=== PATIENT | female | born 1970 | race Two or more races ===

== ENCOUNTER 2020-06-22 05:26 | Inpatient (IN) | payer OTHER ==
[2020-06-22] VITALS (14 sets, daily range): BP systolic 118–128; BP diastolic 61–83
[~2020-06-22] VITALS: Ht 170.2 cm; Wt 88.0 kg
[2020-06-22] MEDS ORDERED: TYLENOL EXTRA500 MG ORAL (06:22)
--- NOTE | 2020-06-22 06:42 | Anethesia Preoperative Eval ---
Anesthesia Pre-op PMH/ROS General Date of Evaluation: Jun 22, 2020 Time of Evaluation: 07:01 Anesthesiologist: Jennifer ASA Score: ASA 2 Mallampati Score Class I : Soft palate, uvula, fauces, pillars visible Class II: Soft palate, uvula, fauces visible Class III: Soft palate, base of uvula visible Class IV: Only hard plate visible Mallampati Classification: Class II Surgeon: Purnima Diagnosis: Neck Pain Surgical Procedure: ACDFC4-5, C6-7, ADR C5-6 Anesthesia History: none Family History: no anesthesia problems Allergies: Coded Allergies: No Known Allergies (Unverified , 06/22/20) Medications: see eMAR Patient NPO?: Yes Past Medical History Cardiovascular: Reports: arrhythmia - PACs Other: obesity - BMI 31 PSxH Narrative: C/S X2 Anesthesia Pre-op Phys. Exam Physician Exam Last Vital Signs Date Time Temp Pulse Resp B/P (MAP) Pulse Ox O2 Delivery O2 Flow Rate FiO2 06/22/20 06:06 97.6 87 16 123/75 (91) 99 06/22/20 06:05 Room Air Constitutional: NAD Neurologic: CN 2-12 intact Cardiovascular: RRR Respiratory: CTA Gastrointestinal: S/NT/ND Airway Exam Mallampati Score: Class II MO: full ROM: limited Teeth: missing, intact Anesthesia Pre-op A/P Labs Urine Test Test 06/22/20 05:40 Urine HCG, Qualitative Negative (NEGATIVE) Risk Assessment & Plan Assessment: ASA 2 Plan: GA, SED, GlideScope Status Change Before Surgery: No Pre-Antibiotics Dru Grams Ancef IV Given Within 1 Hr of Incision: Yes Time Given: 07:26 Matthew Rodriguez MD Jun 22, 2020 06:42
[2020-06-22] MEDS ORDERED: oxyCODONE HCL/Acetaminophen 5/325mg ORAL PRN (06:45)
[2020-06-22] MEDS ORDERED: Atropine Sulfate 0.4mg/ml inj IVP PRN (06:45)
[2020-06-22] MEDS ORDERED: Midazolam 2mg/2ml Inj IVP PRN (06:45)
[2020-06-22] MEDS ORDERED: Metoclopramide 10mg/2ml Inj IVP PRN ×2 (06:45→07:15)
[2020-06-22] MEDS ORDERED: Hydromorphone 0.5mg/0.5ml inj IVP PRN (06:45)
[2020-06-22] MEDS ORDERED: Acetaminophen (Non formulary) 100 ML IV ONE (06:45)
[2020-06-22] MEDS ORDERED: LORazepam Inj 2mg/ml 1ml IV PRN (06:45)
[2020-06-22] MEDS ORDERED: fentaNYL 100 mcg/2 mL IV PRN (06:45)
[2020-06-22] MEDS ORDERED: Meperidine 25mg/1ml Inj (FOR RIGORS ONLY) IV PRN (06:45)
[2020-06-22] MEDS ORDERED: LR 1000ml 1,000 ML IVLG SCH (06:45)
[2020-06-22] MEDS ORDERED: HYDROcodone/Acetamin 7.5/325 tab ORAL PRN (06:45)
[2020-06-22] MEDS ORDERED: HYDROcodone/Acetamin 5/325 tab ORAL PRN ×2 (06:45→07:15)
[2020-06-22] MEDS ORDERED: DiphenhydrAMINE 50mg/ml Inj IVP PRN (06:45)
[2020-06-22] MEDS ORDERED: Labetalol 5mg/ml 20ml vial IV PRN (06:45)
[2020-06-22] MEDS ORDERED: Ketorolac 30mg Inj IV PRN ×2 (06:45)
[2020-06-22] MEDS ORDERED: Sodium Chloride 10ml vial INJ ONE (06:46)
[2020-06-22] MEDS ORDERED: Lidocaine 1% MPF 10mg/ml 5ml ONE (06:46)
[2020-06-22] MEDS ORDERED: Vancomycin 1gm vial IVPB ONE (06:46)
[2020-06-22] MEDS ORDERED: Thrombin 5000 units TOPIC ONE (06:47)
[2020-06-22] MEDS ORDERED: Bacitracin 50000 Units Vial ONE (06:47)
[2020-06-22] MEDS ORDERED: Gelfoam Size TOPIC ONE (06:47)
[2020-06-22] MEDS ORDERED: Lidocaine 1% Plain 30 ml INJ ONE ×3 (06:48→08:48)
[2020-06-22] MEDS ORDERED: Ropivacaine 5mg/ml Vial 30ml INJ ONE (06:48)
[2020-06-22] MEDS ORDERED: Sterile Water Irrig 1000ml IRRIG ONE (07:00)
[2020-06-22] MEDS ORDERED: Rocuronium Bromide 50mg/5ml Inj IV ONE (07:00)
[2020-06-22] MEDS ORDERED: ceFAZolin sod 2 GM in NS 55 ML IVPB ONE (07:00)
[2020-06-22] MEDS ORDERED: LR 1000ml ONE (07:00)
[2020-06-22] MEDS ORDERED: NS Irrig 1000ml ONE (07:00)
[2020-06-22] MEDS ORDERED: propofoL 1,000mg/100ml IV ONE (07:00)
[2020-06-22] MEDS ORDERED: Morphine Sulfate 2mg/ml Inj(IV/IM USE ONLY) IV PRN (07:15)
[2020-06-22] MEDS ORDERED: Naloxone 0.4mg/ml Inj IVP PRN (07:15)
[2020-06-22] MEDS ORDERED: Milk of Magnesia 30ml Ud ORAL PRN (07:15)
[2020-06-22] MEDS ORDERED: Morphine Sulfate 4mg/ml Inj (IV USE ONLY) IV PRN ×2 (07:15)
[2020-06-22] MEDS ORDERED: HYDROmorphone 1mg/ml Carpuject IVP PRN (07:15)
--- NOTE | 2020-06-22 07:17 | Immediate Post-Op Evaluation ---
Immediate Post-Op Evalulation Immediate Post-Op Evalulation Procedure: ACDFC4-5, C6-7, ADR C5-6 Date of Evaluation: Jun 22, 2020 Time of Evaluation: 10:54 IV Fluids: 800 LR Blood Products: 0 Estimated Blood Loss: 75 Urinary Output: 700 Blood Pressure Systolic: 126 Blood Pressure Diastolic: 70 Pulse Rate: 100 Respiratory Rate: 16 O2 Sat by Pulse Oximetry: 100 Temperature (Fahrenheit): 97.5 Pain Score (1-10): 2 Nausea: No Vomiting: No Complications 0 Patient Status: awake, reacts, patent, extubated, none Hydration Status: adequate Dru Grams Ancef IV Given Within 1 Hr of Incision: Yes Time Given: 07:26 Matthew Rodriguez MD Jun 22, 2020 07:17
--- NOTE | 2020-06-22 07:18 | 48 Hour Post Anesthesia Eval ---
Post Anesthesia Evaluation Procedure: ACDFC4-5, C6-7, ADR C5-6 Date of Evaluation: Jun 22, 2020 Time of Evaluation: 13:12 Blood Pressure Systolic: 130 0: 72 Pulse Rate: 89 Respiratory Rate: 18 Temperature (Fahrenheit): 98 O2 Sat by Pulse Oximetry: 100 Airway: patent Nausea: No Vomiting: No Pain Intensity: 2 Hydration Status: adequate Cardiopulmonary Status: Stable Mental Status/LOC: patient returned to baseline Follow-up Care/Observations: 0 Post-Anesthesia Complications: 0 Follow-up care needed: N/A Matthew Rodriguez MD Jun 22, 2020 07:18
--- NOTE | 2020-06-22 07:23 | Pre-Procedure Note/Attestation ---
Pre-Procedure Note/Attestation Complete Prior to Procedure Planned Procedure: not applicable Procedure Narrative: Cervical 56 artificial disc replacement, cervical 45 and 67 anterior cervical discectomy and fusion Indications for Procedure Pre-Operative Diagnosis: C45,56,67 herniation Attestation I attest that I discussed the nature of the procedure; its benefits; risks and complications; and alternatives (and the risks and benefits of such alternatives), prior to the procedure, with the patient (or the patient's legal artist representative). I attest that, if there was a reasonable possibility of needing a blood transfusion, the patient (or the patient's legal artist representative) was given the [facility] standardized written summary, pursuant to the Ravi Marilia Blood Safety Act ([place] Health and Safety Code # 1645, as amended). I attest that I re-evaluated the patient just prior to the surgery and that there has been no change in the patient's H&P, except as documented below: Merlin Felton MD Jun 22, 2020 07:23
--- NOTE | 2020-06-22 07:24 | Brief Operative Note ---
Immediate Post Operative Note Operative Note Chief Complaint: neck pain and radiculopathy Pre-op Diagnosis: C45,56,67 herniation Procedure: Cervical 56 artificial disc replacement, cervical 45 and 67 anterior cervical discectomy and fusion Post-op Diagnosis: same as pre-op Findings: consistent w/pre-op dx studies Surgeon: Purnima Process Control Manager: Migue Anesthesiologist: Jennifer Anesthesia: general Specimen: none Complications: none Condition: stable Fluids: IVF Estimated Blood Loss: minimal Drains: none Implant(s) used?: Yes - C56 prodisc c sz 5, C45 and C67 nuvasive interlock sz 6 screws 13mmx6 Merlin Felton MD Jun 22, 2020 07:24
--- NOTE | 2020-06-22 15:50 | Diagnostic Imaging Report ---
INDICATION: Pain, intraoperative TECHNIQUE: Intraoperative imaging Fluoroscopy time: 39 seconds Total dose: 0.19232 mGym2 Total number of images: 21 COMPARISON: None FINDINGS: Intraoperative images demonstrate surgical tools overlying the C4 vertebral body and the C6-7 disc. Subsequent images document surgical tools at the anterior aspect of the C4-5 and C5-6 discs. Subsequent imaging demonstrates placement of a disc prosthesis at C5-6 and anterior fusion hardware at C4-5 and C6-7 IMPRESSION: Intraoperative imaging, as described
--- NOTE | 2020-06-22 15:51 | Diagnostic Imaging Report ---
Indication: Postoperative Technique: 2 views of the cervical spine Comparison: none Findings: There is well aligned cervical fusion hardware bridging C4-5 and C6-7. There is a disc prosthesis which appears well aligned at C5-6. Gas from the surgical exposure seen within the soft tissues Impression: Postoperative cervical spine, no unusual features
[2020-06-22] MEDS: ceFAZolin sod 1 GM in D5W 55 ML IV SCH (16:19)
[2020-06-22] MEDS: HYDROcodone/Acetamin 7.5/325 tab ORAL PRN (17:19)
[2020-06-22] MEDS: Docusate 100mg cap ORAL SCH (17:19)
--- NOTE | 2020-06-22 19:44 | Operative Note - Dictated ---
DATE OF OPERATION: 06/22/2020 SURGEON: Merlin Felton MD, Orthopaedic Spine Surgeon. MANAGED SERVICES SALES CONSULTANT: Stephan Camarena MD PREOPERATIVE DIAGNOSES: 1. Intractable neck pain. 2. Radiculopathy. 3. Herniation, C4-C5, C5-C6, C6-C7. 4. Neural foraminal stenosis, C4-C5, C5-C6, C6-C7. 5. Stenosis. POSTOPERATIVE DIAGNOSES: 1. Intractable neck pain. 2. Radiculopathy. 3. Herniation, C4-C5, C5-C6, C6-C7. 4. Neural foraminal stenosis, C4-C5, C5-C6, C6-C7. 5. Stenosis. PROCEDURE PERFORMED: 1. Anterior cervical discectomy and artificial disc replacement of C5-C6 using a Synthes ProDisc C size 5. 2. Anterior cervical discectomy and fusion of C4-C5 using NuVasive Interlock C size 5 PEEK cage and three screws of 13 mm length, and 1 mL of Osteocel allograft bone and local autograft. 3. Anterior cervical discectomy and fusion of C6-C7 using NuVasive Interlock C size 6 PEEK cage and three screws of 13 mm length, and 1 mL of Osteocel allograft bone and local autograft. 4. Use of intraoperative microscope. 5. Motor-evoked potential monitoring. 6. Somatosensory-evoked potential monitoring. 7. Supervision and interpretation of fluoroscopy. COMPLICATIONS: None. ANESTHESIA: General. ESTIMATED BLOOD LOSS: Less than 100 mL. INDICATIONS FOR SURGERY: This patient is a 50-year-old female who has a history of diagnoses as listed above. As of result of this, the patient sustained intractable neck pain; radiculopathy; herniation at C4-C5, C5-C6, C6-C7; neural foraminal stenosis at C4-C5, C5-C6, C6-C7; stenosis. Conservative management on this person was tried with an offset, presented with 95% neck pain and 5% shoulder pain, which was 100% right-sided. Prior to surgery, she tried a course of conservative management, which included chiropractic therapy and [facility] She also tried heating pads, ice packs, TENS unit, electrotherapy, and massage and stretching exercises. She was consulting with Dr. Santana and had undergone injections in her lumbar spine as well as injections with Dr. Villagomez on 05/18/2020, which provided 75% relief into the right C4-C5 with nerve root block. She presents today for definitive management in the form of artificial disc replacement of C5-C6 and anterior cervical diskectomy and fusion at C4-C5 and C6-C7. We had a long discussion with [facility] regarding the risks and benefits of surgery. Our discussion included but was not limited to nonoperative management, chiropractic management, another epidural steroid injection as well as definitive management in the form of surgery. We recommended an artificial disc replacement of cervical C5-C6 and anterior cervical discectomy and fusion of cervical C4-C5 and C6-C7, as final definitive management. We reviewed the risks and benefits of surgery with the patient. Our discussion included a comprehensive review of the clinical issues and the nature of the clinical decision. We reviewed the alternatives, including doing nothing. The patient elected to proceed accordingly with an artificial disc replacement of cervical C5-C6 and anterior cervical discectomy and fusion of cervical C4-C5 and C6-C7. We had a long discussion regarding the risks, alternatives, and benefits of surgery. Our description of the risks included a discussion in person as well as a signed consent, which detailed all pertinent risks from the procedure itself. Briefly, our discussion included but was not limited to infection, bleeding, pseudarthrosis, spinal cord injury, neurovascular injury, dural tear, CSF leak, neuropathy, paralysis, permanent weakness/drop foot/drop arm, paresthesias, blindness, palsy, and weakness. The patient understood there may be a need for a revision surgery or additional procedures. Approach-related complications including dysphonia, dysphagia, blindness, permanent vocal cord and neural injury, hematoma, swallowing and breathing difficulty. Medical complications were reviewed including liver, kidney, shock, cardiopulmonary failure, anesthesia complications including , swelling, damage to the musculature, larynx/voice injury or loss, esophagus/throat, trachea, blood vessels and muscles/muscular sprain and lungs/pneumothorax during this surgical procedure; injury to deeper structures may be temporary or permanent. After this review of risks, the patient understood these and elected to proceed. A written and verbal consent was given. We discussed the pros and cons of all the alternatives. We discussed the uncertainties associated with the decision. Afterwards, I assessed the patient's understanding and explored their preferences. All questions were answered and no guarantees were given. Medical clearance was obtained prior to surgery. INTRAOPERATIVE FINDINGS: At C6-C7, after removal of the majority of the disc, I noted the disc to be soft and spongy, not dehydrated or calcified. Near the posterior margin of the disc, I noted a large tear in the posterior longitudinal ligament on the right side. This was probed with a Microsect curette, which led to discovery of a large herniated fragment encroaching the neural foramina on the right side and causing severe neural foraminal stenosis as well as some impingement posteriorly on the thecal sac and the spinal cord. This was more than even appreciated on the MRI. This was completely resected with Kerrison 1 and Kerrison 2 rongeur. The tear of the posterior longitudinal ligament, I should note, appeared fresh edges. This was not something that appeared to be an old tear or a simple disc bulge, which can be more broad-based. Here, this was an eccentric tear on the right-hand side. At C5-C6, I noted the disc itself to be soft and spongy, not dehydrated or calcified. Upon removal of the disc, I noted 2 tears, one on the right and one on the left neural foramina in the posterior longitudinal ligament. The tear was approximately 10 degrees cephalad to caudad in line with the fibers on the right and left. These 2 tears were probed and on the left side, it gave rise to a large herniated nuclear fragment, which was causing encroachment on the neural foramina. On the right side, it also gave rise to a nuclear fragment smaller than what was discovered on the left; however, this was causing some neural foraminal encroachment on the right as well. The disc was resected with Kerrison 1 and Kerrison 2 rongeur without any difficulty. At C4-C5, after removal of the majority of the disc, I noted a tear in the posterior longitudinal ligament on the right side of the posterior longitudinal ligament. The tear had fresh edges. The disc itself was soft and mobile, not calcified or crumbled, leading me to believe this was more traumatic in nature. Upon probing the posterior longitudinal tear, I noted the edges to be relatively fresh and approximately 10 degrees cephalad to caudad. Probing with a Microsect curette, led to discovery of nuclear pulposus tissue, which was exiting through the tear in the PLL and encroaching on the neural foramina primarily on the right side. This was resected with Kertoñito 1 and Rafael 2 heike. DESCRIPTION OF PROCEDURE: Under the benefit of general endotracheal anesthesia and with the assistance of the entire operative team, the patient was moved from the gurney onto the operative table in the supine position. The head was secured and carefully positioned appropriately. Bilateral arms were secured with Gel Pads and foam and all bony prominences were padded. For the bilateral lower extremities, SCD and NEGRITO hose were placed for DVT prophylaxis. A surgical timeout was called, which corroborated our planned procedure of an artificial disc replacement of cervical C5-C6 and anterior cervical discectomy and fusion of cervical C4-C5 and C6-C7. Preoperative antibiotics were administered within 30 minutes of the incision for antibiotic prophylaxis. Using lateral fluoroscopic radiography, the operative levels were delineated. Next, the wound was prepped and draped with chlorhexidine and sterile drapes. An incision was based on lateral fluoroscopy and we centered our incision at the C4-C5, C5-C6, and C6-C7 interspace and next, using a standard [place]-Mohan anterior-based approach, the incision was taken down through the skin and subcutaneous tissues until the vertebral bodies and their corresponding disc spaces were visualized. A needle was placed into the interspace to confirm placement of the operative interspace and we performed the remainder of procedure under microscopic visualization. Next, using bipolar and Bovie cautery to ensure meticulous hemostasis, the longus colli was mobilized bilaterally and retractors were placed deep to the longus colli bilaterally to address retraction. Next, we turned our attention to the radical anterior discectomy. This was initially performed at C5-C6 first by using a 15 blade scalpel followed by narrow pituitaries and a Microsect 5-B curette was used to denude the endplate of all cartilaginous tissue. Next, using a [employer] AM8 drill bit, the vertebral endplates were denuded of all residual cartilage in a ibxa-lg-usyd and sppyr-fj-edukl fashion, and ultimately the posterior uncinate joints bilaterally and posterior osteophytic lips and margins were carefully denuded until clear visualization of the posterior longitudinal ligament was possible. An endplate preparation was performed in the exact same fashion using an intervertebral vault person, sequential distraction was obtained throughout the disc space. We saw a tear/rent in the PLL and this was carefully mobilized and dissected using a Microsect 1-B curette until we visualized a discrete disc herniation with compression of the spinal cord as well as neural foramina, which was right more than left sided. This neural foraminal compression was carefully resected using a Kerrison-1 and Kerrison-2 rongeurs until complete decompression of the spinal cord was visualized and complete decompression of the neural foramina and nerve root therein as well as the axilla and lateral margin of the nerve root was visualized and subsequently completely decompressed. The family was notified at one-hour intervals throughout the procedure to provide for consistent updates. We next turned our attention towards trialing our implant within the disc space. We initially tried size 5 and this ProDisc Cervical spacer fit well in regard to depth and width. This implant was opened and prepared. Next, under direct visualization, I confirmed excellent fit in respect to the anterior and posterior vertebral bodies, the uncinate joints, and in regard to toggle. Once satisfied with this placement on serial AP and lateral fluoroscopy, I turned my attention towards cutting our chris. These were cut in the bones using a reciprocating drill and afterwards all free fragments of bone were irrigated. Next, FloSeal was placed into the interspace, then removed in its entirety, and the implant was inserted using fluoroscopic guidance. Next, the Synthes ProDisc C size 5 ADR was then carefully advanced and secured into the intervertebral space under direct visualization and with supervision of AP and lateral fluoroscopic views. I next turned my attention towards the radical anterior discectomy. This was then performed at C4-C5 first by using a 15 blade scalpel followed by narrow pituitaries and a Microsect 5-B curette was used to denude the endplate of all cartilaginous tissue. Next, using a [employer] AM8 drill bit, the vertebral endplates were denuded of all cartilaginous tissue in a ttsf-qm-sdpl and uixxn-ig-okeac fashion, and ultimately the posterior uncinate joints bilaterally and posterior osteophytic lips and margins were carefully denuded until wide and thorough visualization of the posterior longitudinal ligament was possible. At this level, the endplate preparation was performed in the exact same fashion using an intervertebral vault person, sequential distraction was obtained throughout the disc space. We saw a tear/rent in the PLL and this was carefully mobilized and dissected using a Microsect 1-B curette until we visualized an obvious disc herniation with compression of the spinal cord as well as neural foramina, which was right more than left sided. This neural foraminal compression was carefully resected using Kerrison-1 and Kerrison-2 rongeurs until complete decompression of the spinal cord was visualized and complete decompression of the neural foramina and nerve root therein as well as the axilla and lateral margin of the nerve root was visualized and subsequently completely decompressed. We next turned our attention towards trialing our implant within the disc space. We initially tried size 5 trial from the NuVasive Interlock system at C4-C5 level, which appeared to be appropriate under AP and lateral fluoroscopy as well as in terms of its height, depth, width, and lack of toggle. The PEEK (polyetheretherketone) interbody cage was then packed with allograft bone from Osteocel and local autograft bone matrix. Next, this was then carefully advanced and secured into the intervertebral spaces under direct visualization and with supervision of AP and lateral fluoroscopic views. We next turned our attention towards plating. Plating was performed at C4-C5 level with the NuVasive Interlock-C plating system. A total of three screws of size 13 mm in length were inserted and confirmed under AP and lateral fluoroscopy and confirmed to be in excellent position. I next turned my attention towards the radical anterior discectomy. This was then performed at C6-C7 first by using a 15 blade scalpel followed by narrow pituitaries and a Microsect 5-B curette was used to denude the endplate of all cartilaginous tissue. Next, using a [employer] AM8 drill bit, the vertebral endplates were denuded of all cartilaginous tissue in a lkqy-iq-wxqi and kgweb-ku-ijiup fashion, and ultimately the posterior uncinate joints bilaterally and posterior osteophytic lips and margins were carefully denuded until wide and thorough visualization of the posterior longitudinal ligament was possible. At this level, the endplate preparation was performed in the exact same fashion using an intervertebral vault person, sequential distraction was obtained throughout the disc space. We saw a tear/rent in the PLL and this was carefully mobilized and dissected using a Microsect 1-B curette until we visualized an obvious disc herniation with compression of the spinal cord as well as neural foramina, which was right more than left sided. This neural foraminal compression was carefully resected using Kerrison-1 and Kerrison-2 rongeurs until complete decompression of the spinal cord was visualized and complete decompression of the neural foramina and nerve root therein as well as the axilla and lateral margin of the nerve root was visualized and subsequently completely decompressed. We next turned our attention towards trialing our implant within the disc space. We initially tried size 5 and afterwards size 6 trial from the NuVasive Interlock system at C6-C7 level, which appeared to be appropriate under AP and lateral fluoroscopy as well as in terms of its height, depth, width, and lack of toggle. The PEEK (polyetheretherketone) interbody cage was then packed with 1 mL of allograft bone from Osteocel and local autograft bone matrix. Next, this was then carefully advanced and secured into the intervertebral spaces under direct visualization and with supervision of AP and lateral fluoroscopic views. We next turned our attention towards plating. Plating was performed at C6-C7 level with the NuVasive Interlock-C plating system. A total of three screws of size 13 mm in length were inserted and confirmed under AP and lateral fluoroscopy and confirmed to be in excellent position. After a finger sweep, we confirmed removal of all sponges. The retractor was removed and we next turned our attention to meticulous hemostasis with FloSeal and bipolar cautery. After the sponge and needle count was again found to be correct with our second count, we next turned our attention to closure. The wound was again copiously irrigated with antibiotic-impregnated saline. Closure consisted of 4-0 clear nylon for the platysma, and 5-0 clear nylon for the superficial skin. Final skin closure and dressings consisted of Dermabond. Prior to final closure, a final radiograph was obtained, which demonstrated the hardware was intact with excellent position throughout. The patient tolerated the procedure well. The patient was carefully extubated after the conclusion of surgery. We discussed the findings of the surgery with the family upon completion of the case. At this point, the patient was transferred to the spine floor for further observation. Merlin Felton M.D. DR: DIONISIO JOB#: [id number] CC: CLEMENT
[2020-06-23] VITALS (36 sets, daily range): BP systolic 64–145; BP diastolic 28–94
[2020-06-23] MEDS: ceFAZolin sod 1 GM in D5W 55 ML IV SCH ×2 (00:23→08:00)
[2020-06-23] MEDS ORDERED: Omnipaque-300 100ml vial INJ ONE (06:56)
[2020-06-23] MEDS ORDERED: dilTIAZem HCl 50mg/10ml Inj IVP ONE (07:00)
[2020-06-23] MEDS ORDERED: dilTIAZem HCl 25mg/5ml Inj ONE (07:13)
[2020-06-23 07:24] LABS: BASOPHILS % (AUTO) 0.4 % (0.0-2.0); HEMATOCRIT 32.9 % (37.0-47.0); HEMOGLOBIN 10.8 G/DL (12.0-16.0); LYMPHOCYTES % (AUTO) 14.9 % (20.0-45.0); MEAN CORPUSCULAR VOLUME 88 FL (80-99); MONOCYTES % (AUTO) 4.5 % (1.0-10.0); NEUTROPHILS % (AUTO) 80.2 % (45.0-75.0); PLATELET COUNT 213 K/UL (150-450); RED BLOOD COUNT 3.73 M/UL (4.20-5.40); RED CELL DISTRIBUTION WIDTH 16.2 % (11.6-14.8); WHITE BLOOD COUNT 17.6 K/UL (4.8-10.8)
[2020-06-23 07:47] LABS: CALCIUM 8.8 MG/DL (8.5-10.1); POTASSIUM 4.3 MMOL/L (3.5-5.1)
[2020-06-23 07:57] LABS: ALBUMIN 3.5 G/DL (3.4-5.0); ALBUMIN/GLOBULIN RATIO 1.1 (1.0-2.7); BILIRUBIN,TOTAL 0.8 MG/DL (0.2-1.0); PHOSPHORUS 3.4 MG/DL (2.5-4.9)
[2020-06-23] MEDS ORDERED: dilTIAZem HCl 25mg/5ml Inj IVP SCH ×2 (08:15→17:15)
[2020-06-23] MEDS ORDERED: Omnipaque 350 100ml vial INJ SCH (09:00)
--- NOTE | 2020-06-23 10:02 | Diagnostic Imaging Report ---
EXAM: US Duplex Bilateral Lower Extremities Veins CLINICAL HISTORY: PE TECHNIQUE: Real-time duplex ultrasound scan of the bilateral lower extremity veins integrating B-mode two-dimensional vascular structure, Doppler spectral analysis, color flow Doppler imaging and compression. COMPARISON: No relevant prior studies available. FINDINGS: Right deep veins: Unremarkable. No DVT in the right common femoral, femoral, proximal deep femoral or popliteal veins. The veins demonstrate normal color flow, are normally compressible, with normal phasic flow and/or augmentation response. Right superficial veins: Unremarkable. No thrombus in the visualized right great saphenous vein. Left deep veins: Unremarkable. No DVT in the left common femoral, femoral, proximal deep femoral or popliteal veins. The veins demonstrate normal color flow, are normally compressible, with normal phasic flow and/or augmentation response. Left superficial veins: Unremarkable. No thrombus in the visualized left great saphenous vein. Soft tissues: No acute findings. No popliteal cyst. IMPRESSION: No evidence of DVT in the lower extremities.
--- NOTE | 2020-06-23 10:24 | Diagnostic Imaging Report ---
EXAM: CT Angiography Chest With Intravenous Contrast CLINICAL HISTORY: PE. Pt had Cervical fusion a few days ago. TECHNIQUE: Axial computed tomographic angiography images of the chest with intravenous contrast. CTDI is 5.70 mGy and DLP is 168.30 mGy-cm. One or more of the following dose reduction techniques were used: automated exposure control, adjustment of the mA and/or kV according to patient size, use of iterative reconstruction technique. MIP reconstructed images were created and reviewed. COMPARISON: No relevant prior studies available. FINDINGS: Soft tissue swelling and emphysema noted in the inferior neck, likely related to recent cervical spine surgery. Normal caliber thoracic aorta with pulsation artifact. Mild cardiomegaly. No pericardial effusion. No pulmonary edema or failure. Bilateral lower lobe posterior atelectasis and dependent vascular congestion. No focal consolidative process or pleural effusions. No central PE. More peripheral branches are not adequately evaluated due to respiratory motion. Small hiatal hernia. Mottled sclerotic changes in the T9 vertebral body. IMPRESSION: Normal caliber thoracic aorta with pulsation artifact. Mild cardiomegaly. No pericardial effusion. No pulmonary edema or failure. Bilateral lower lobe posterior atelectasis and dependent vascular congestion. No central PE. More peripheral branches are not adequately evaluated due to respiratory motion. Indeterminate sclerotic changes in the T9 vertebral body. Recommend correlation with bone scan/MRI. Soft tissue swelling and emphysema noted in the inferior neck, likely related to recent cervical spine surgery
[2020-06-23] MEDS: Docusate 100mg cap ORAL SCH ×2 (10:34→18:04)
[2020-06-23] MEDS ORDERED: Metoprolol Tartrate 5mg/5ml Inj IVP SCH (11:30)
[2020-06-23] MEDS ORDERED: Metoprolol Tartrate 10 MG in D5W 55 ML IVPB SCH (16:00)
[2020-06-23] MEDS: dilTIAZem Premix 125mg/125ml 125 ML IVPB SCH (17:25)
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
[2020-06-23] MEDS ORDERED: DiphenhydrAMINE 50mg/ml Inj IVP PRN (20:00)
[2020-06-23] MEDS: HYDROcodone/Acetamin 7.5/325 tab ORAL PRN (22:11)
[2020-06-24] VITALS (64 sets, daily range): BP systolic 88–121; BP diastolic 34–80
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
[2020-06-24] MEDS: dilTIAZem Premix 125mg/125ml 125 ML IVPB SCH (06:30)
[2020-06-24 07:16] LABS: HEMATOCRIT 30.4 % (37.0-47.0); HEMOGLOBIN 10.1 G/DL (12.0-16.0); LYMPHOCYTES % (AUTO) 32.1 % (20.0-45.0); MEAN CORPUSCULAR VOLUME 88 FL (80-99); MONOCYTES % (AUTO) 4.8 % (1.0-10.0); PLATELET COUNT 206 K/UL (150-450); RED BLOOD COUNT 3.46 M/UL (4.20-5.40); RED CELL DISTRIBUTION WIDTH 16.4 % (11.6-14.8); WHITE BLOOD COUNT 10.6 K/UL (4.8-10.8)
[2020-06-24] MEDS: Docusate 100mg cap ORAL SCH ×2 (08:39→17:41)
[2020-06-24] MEDS: dilTIAZem HCl 30mg tab ORAL SCH ×2 (13:59→17:41)
[2020-06-24] MEDS ORDERED: dilTIAZem Premix 125mg/125ml 125 ML IVPB SCH (14:00)
[2020-06-24] MEDS: HYDROcodone/Acetamin 7.5/325 tab ORAL PRN (14:13)
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
--- NOTE | 2020-06-24 21:55 | Cardiology Progress Note ---
Subjective DATE OF SERVICE: Jun 24, 2020 On IV diltiazem - converted back to sinus with PAC's Able to tolerate oral intake now. Had CP this morning - resolved with dilaudid; property assessment monitor reveals sinus with PAC's. 2D echo: (06/24) with normal LVEF 65%. Mild pulm hypertension(41mmHg). Mild MR , mild -mod TR. Objective Last 24 Hour Vital Signs Date Time Temp Pulse Resp B/P (MAP) Pulse Ox O2 Delivery O2 Flow Rate FiO2 06/24/20 20:00 98.1 85 20 119/71 (87) 98 06/24/20 19:15 89 14 109/56 (73) 99 06/24/20 19:00 86 12 105/51 (69) 98 06/24/20 18:45 88 12 103/57 (72) 98 06/24/20 18:30 83 11 104/54 (71) 97 06/24/20 18:15 82 10 100/60 (73) 97 06/24/20 18:00 85 13 104/49 (67) 98 06/24/20 17:41 90 112/53 06/24/20 17:30 88 11 112/53 (72) 98 06/24/20 17:00 97 25 119/62 (81) 97 06/24/20 16:30 85 10 108/64 (79) 97 06/24/20 16:00 92 06/24/20 16:00 Room Air 06/24/20 16:00 98.9 93 18 113/80 (91) 98 06/24/20 15:30 92 21 114/66 (82) 98 06/24/20 15:00 94 20 111/70 (84) 99 06/24/20 14:30 90 13 109/64 (79) 100 06/24/20 14:00 95 14 108/65 (79) 99 06/24/20 13:59 101 112/59 06/24/20 13:30 91 13 103/60 (74) 99 06/24/20 13:00 95 19 121/66 (84) 100 06/24/20 12:30 95 19 103/73 (83) 100 06/24/20 12:00 Room Air 06/24/20 12:00 84 06/24/20 12:00 97.8 84 10 94/58 (70) 100 06/24/20 11:30 86 13 91/51 (64) 98 06/24/20 11:00 84 10 97/60 (72) 98 06/24/20 10:45 84 12 101/57 (72) 98 06/24/20 10:30 90 16 106/60 (75) 99 06/24/20 10:15 91 15 102/71 (81) 98 06/24/20 10:00 89 13 104/66 (79) 98 06/24/20 09:45 82 12 94/57 (69) 97 06/24/20 09:30 82 12 99/68 (78) 97 06/24/20 09:15 87 10 100/70 (80) 100 06/24/20 09:00 94 21 95/77 (83) 99 06/24/20 08:45 93 16 111/62 (78) 99 06/24/20 08:41 91 14 100/59 (73) 100 06/24/20 08:30 84 10 101/57 (72) 98 06/24/20 08:15 85 12 99/49 (66) 98 06/24/20 08:00 91 06/24/20 08:00 Room Air 06/24/20 08:00 98.1 84 11 106/48 (67) 98 06/24/20 07:45 92 17 107/67 (80) 98 06/24/20 07:30 85 19 100/64 (76) 98 06/24/20 07:00 76 12 91/52 (65) 97 06/24/20 06:30 100 10 98/65 (76) 96 06/24/20 06:00 100 10 92/65 (74) 94 06/24/20 05:45 102 16 96/77 (83) 95 06/24/20 05:30 103 12 101/70 (80) 95 06/24/20 05:15 106 19 105/69 (81) 98 06/24/20 05:00 100 15 96/66 (76) 98 06/24/20 04:45 98 13 96/66 (76) 98 06/24/20 04:30 101 16 105/61 (76) 97 06/24/20 04:15 101 14 94/54 (67) 97 06/24/20 04:00 Room Air 06/24/20 04:00 95 06/24/20 04:00 98.3 97 10 97/63 (74) 97 06/24/20 03:45 101 12 98/57 (71) 98 06/24/20 03:30 93 12 94/64 (74) 98 06/24/20 03:15 91 13 95/57 (70) 98 06/24/20 03:00 92 12 94/61 (72) 97 06/24/20 02:45 93 10 90/64 (73) 97 06/24/20 02:30 91 15 93/63 (73) 97 06/24/20 02:15 89 9 91/60 (70) 97 06/24/20 02:03 95 17 88/58 (68) 97 06/24/20 02:00 96 9 88/34 (52) 96 06/24/20 01:45 99 10 90/59 (69) 98 06/24/20 01:30 91 9 92/56 (68) 96 06/24/20 01:15 97 10 92/62 (72) 97 06/24/20 01:00 96 10 94/62 (73) 97 06/24/20 00:45 109 14 93/53 (66) 97 06/24/20 00:44 101 06/24/20 00:30 138 10 93/63 (73) 96 06/24/20 00:15 158 19 95/60 (72) 98 06/24/20 00:00 Room Air 06/24/20 00:00 98.3 163 24 101/60 (74) 97 06/23/20 23:45 165 13 95/56 (69) 98 06/23/20 23:30 167 12 95/56 (69) 98 06/23/20 23:15 164 14 94/56 (69) 98 06/23/20 23:00 163 18 104/69 (81) 98 06/23/20 22:45 163 18 100/75 (83) 98 06/23/20 22:30 161 12 102/56 (71) 98 06/23/20 22:15 163 13 98/62 (74) 97 06/23/20 22:00 162 12 94/62 (73) 98 06/23/20 22:00 162 12 94/62 (73) 98 06/23/20 21:45 161 14 96/54 (68) 97 HEENT: other - surgical dressing over anterior neck RHYTHM: NSR, PACs, other - PAFlutter LUNGS: lungs clear bilaterally, diminished breath sounds CARDIAC: normal rate, regular rhythm, normal S1 and S2 ABDOMEN: normal bowel sounds, non tender EXTREMITIES: no calf tenderness, No edema Laboratory Tests Test 06/24/20 06:00 White Blood Count 10.6 K/UL (4.8-10.8) Red Blood Count 3.46 M/UL (4.20-5.40) L Hemoglobin 10.1 G/DL (12.0-16.0) L Hematocrit 30.4 % (37.0-47.0) L Mean Corpuscular Volume 88 FL (80-99) Mean Corpuscular Hemoglobin 29.1 PG (27.0-31.0) Mean Corpuscular Hemoglobin Concent 33.1 G/DL (32.0-36.0) Red Cell Distribution Width 16.4 % (11.6-14.8) H Platelet Count 206 K/UL (150-450) Mean Platelet Volume 9.7 FL (6.5-10.1) Neutrophils (%) (Auto) 61.0 % (45.0-75.0) Lymphocytes (%) (Auto) 32.1 % (20.0-45.0) Monocytes (%) (Auto) 4.8 % (1.0-10.0) Eosinophils (%) (Auto) 1.0 % (0.0-3.0) Basophils (%) (Auto) 1.0 % (0.0-2.0) Magnesium Level 1.7 MG/DL (1.8-2.4) L Troponin I 0.025 ng/mL (0.000-0.056) Pro-B-Type Natriuretic Peptide 4197 pg/mL (0-125) H Thyroid Stimulating Hormone (TSH) 3.524 uiU/mL (0.358-3.740) Microbiology Date/Time Source Procedure Growth Status 06/22/20 06:10 Nasal Nares MRSA Culture - Final NO METHICILLIN RESISTANT STAPH AUREUS... Complete Assessment/Plan Assessment/Plan PAFlutter Post op cervical spine surgery Mild pulmonary hypertension - ? etiology Mild mitral and tricuspid regurgitation Continue oral diltiazem No anticoag therapy at present Pulmonary follow up Consideration for ablation in future Claudio Barone MD Jun 24, 2020:55
[2020-06-25] VITALS: BP 102/60
[2020-06-25 04:00] VITALS: BP 104/56
[2020-06-25 05:32] LABS: BASOPHILS % (AUTO) 1.1 % (0.0-2.0); EOSINOPHILS % (AUTO) 1.9 % (0.0-3.0); HEMATOCRIT 30.1 % (37.0-47.0); HEMOGLOBIN 9.7 G/DL (12.0-16.0); LYMPHOCYTES % (AUTO) 27.9 % (20.0-45.0); MEAN CORPUSCULAR VOLUME 89 FL (80-99); MONOCYTES % (AUTO) 4.6 % (1.0-10.0); NEUTROPHILS % (AUTO) 64.5 % (45.0-75.0); PLATELET COUNT 198 K/UL (150-450); RED BLOOD COUNT 3.39 M/UL (4.20-5.40); RED CELL DISTRIBUTION WIDTH 16.9 % (11.6-14.8)
[2020-06-25] MEDS: dilTIAZem HCl 30mg tab ORAL SCH ×3 (06:00→12:28)
[2020-06-25 06:01] LABS: ANION GAP 5 mmol/L (5-15); BLOOD UREA NITROGEN 5 mg/dL (7-18); CALCIUM 8.6 MG/DL (8.5-10.1); CARBON DIOXIDE 29 MMOL/L (21-32); CHLORIDE 105 MMOL/L (98-107); CREATININE 0.8 MG/DL (0.55-1.30); SODIUM 139 MMOL/L (136-145)
[2020-06-25 08:00] VITALS: BP 134/85
[2020-06-25] MEDS: Docusate 100mg cap ORAL SCH (08:11)
[2020-06-25] MEDS: HYDROcodone/Acetamin 7.5/325 tab ORAL PRN (08:12)
[2020-06-25] MEDS ORDERED: Bisacodyl EC 5mg tab ORAL SCH (08:30)
--- NOTE | 2020-06-25 08:48 | General Progress Note ---
Subjective Allergies: Coded Allergies: No Known Allergies (Unverified , 06/22/20) Subjective stable back in NSR doing well constipated Objective Last 24 Hour Vital Signs Date Time Temp Pulse Resp B/P (MAP) Pulse Ox O2 Delivery O2 Flow Rate FiO2 06/25/20 06:00 79 104/56 06/25/20 04:00 Room Air 06/25/20 04:00 87 06/25/20 04:00 97.5 90 20 104/56 (72) 99 06/25/20 00:00 97.7 82 20 102/60 (74) 99 06/25/20 00:00 86 06/25/20 00:00 82 100/60 06/25/20 00:00 Room Air 06/24/20 20:00 Room Air 06/24/20 20:00 81 06/24/20 20:00 98.1 85 20 119/71 (87) 98 06/24/20 19:15 89 14 109/56 (73) 99 06/24/20 19:00 86 12 105/51 (69) 98 06/24/20 18:45 88 12 103/57 (72) 98 06/24/20 18:30 83 11 104/54 (71) 97 06/24/20 18:15 82 10 100/60 (73) 97 06/24/20 18:00 85 13 104/49 (67) 98 06/24/20 17:41 90 112/53 06/24/20 17:30 88 11 112/53 (72) 98 06/24/20 17:00 97 25 119/62 (81) 97 06/24/20 16:30 85 10 108/64 (79) 97 06/24/20 16:00 92 06/24/20 16:00 Room Air 06/24/20 16:00 98.9 93 18 113/80 (91) 98 06/24/20 15:30 92 21 114/66 (82) 98 06/24/20 15:00 94 20 111/70 (84) 99 06/24/20 14:30 90 13 109/64 (79) 100 06/24/20 14:00 95 14 108/65 (79) 99 06/24/20 13:59 101 112/59 06/24/20 13:30 91 13 103/60 (74) 99 06/24/20 13:00 95 19 121/66 (84) 100 06/24/20 12:30 95 19 103/73 (83) 100 06/24/20 12:00 Room Air 06/24/20 12:00 84 06/24/20 12:00 97.8 84 10 94/58 (70) 100 06/24/20 11:30 86 13 91/51 (64) 98 06/24/20 11:00 84 10 97/60 (72) 98 06/24/20 10:45 84 12 101/57 (72) 98 06/24/20 10:30 90 16 106/60 (75) 99 06/24/20 10:15 91 15 102/71 (81) 98 06/24/20 10:00 89 13 104/66 (79) 98 06/24/20 09:45 82 12 94/57 (69) 97 06/24/20 09:30 82 12 99/68 (78) 97 06/24/20 09:15 87 10 100/70 (80) 100 06/24/20 09:00 94 21 95/77 (83) 99 Intake and Output 06/24/20 06/25/20 19:00 07:00 Intake Total 986.25 ml 187.5 ml Output Total 0 ml Balance 986.25 ml 187.5 ml Intake Oral 580 ml 50 ml IV Total 406.25 ml 137.5 ml Output Urine Total 0 ml # Voids 1 3 Laboratory Tests 06/25/20 04:58: White Blood Count 8.0, Red Blood Count 3.39L, Hemoglobin 9.7L, Hematocrit 30.1L, Mean Corpuscular Volume 89, Mean Corpuscular Hemoglobin 28.8, Mean Corpuscular Hemoglobin Concent 32.4, Red Cell Distribution Width 16.9H, Platelet Count 198, Mean Platelet Volume 9.7, Neutrophils (%) (Auto) 64.5, Lymphocytes (%) (Auto) 27.9, Monocytes (%) (Auto) 4.6, Eosinophils (%) (Auto) 1.9, Basophils (%) (Auto) 1.1, Sodium Level 139, Potassium Level 4.0, Chloride Level 105, Carbon Dioxide Level 29, Anion Gap 5, Blood Urea Nitrogen 5L, Creatinine 0.8, Estimat Glomerular Filtration Rate > 60, Glucose Level 92, Calcium Level 8.6, Vancomycin Level Trough 15.9H Height (Feet): 5 Height (Inches): 7.00 Weight (Pounds): 194 Objective WDWN NAD clear breath sounds bilaterally without rhonchi or wheeze [id number] without MRG NABS nontender no HSM no CCE nonfocal Assessment/Plan Assessment/Plan: YVROSE sarmiento PACS postop constipation PLAN dc home cardizem CD 120mg daily pain meds follow up for change cleared by cardiology follow up with PMD- patient aware impression, plan, and exam edited and reviewed in detail care discussed with Arvind Strauss MD Jun 25, 2020 08:48
[2020-06-25] MEDS ORDERED: CARDIZEM CD300 M1 PO (09:49)
[2020-06-25] MEDS ORDERED: NORCO 10-325 T1 EACH ORAL (09:51)
[2020-06-25 12:00] VITALS: BP 124/88
[2020-06-25 12:28] VITALS: BP 124/88
[2020-06-25] MEDS ORDERED: NS 275ml ONE ×2 (13:29)
[2020-06-25] MEDS ORDERED: Tubing IV Secondary IV ONE (13:29)
--- NOTE | 2020-06-25 23:04 | Cardiology Progress Note ---
Subjective DATE OF SERVICE: Jun 25, 2020 Remains in sinus rhythm with PAC's, on oral diltiazem. Able to tolerate oral intake now. No further chest pain. equipment monitor phototypesetting reveals sinus with PAC's. 2D echo: (06/24) with normal LVEF 65%. Mild pulm hypertension(41mmHg). Mild MR , mild -mod TR. Objective Last 24 Hour Vital Signs Date Time Temp Pulse Resp B/P (MAP) Pulse Ox O2 Delivery O2 Flow Rate FiO2 06/25/20 12:28 99 124/88 06/25/20 12:00 Room Air 06/25/20 12:00 97.5 98 18 124/88 (100) 100 06/25/20 11:57 124 06/25/20 08:00 97.2 86 18 134/85 (101) 100 06/25/20 08:00 Room Air 06/25/20 07:52 102 06/25/20 06:00 79 104/56 06/25/20 04:00 Room Air 06/25/20 04:00 87 06/25/20 04:00 97.5 90 20 104/56 (72) 99 06/25/20 00:00 97.7 82 20 102/60 (74) 99 06/25/20 00:00 86 06/25/20 00:00 82 100/60 06/25/20 00:00 Room Air HEENT: other - surgical dressing over anterior neck RHYTHM: NSR, PACs, other - PAFlutter LUNGS: lungs clear bilaterally, diminished breath sounds CARDIAC: normal rate, regular rhythm, normal S1 and S2 ABDOMEN: normal bowel sounds, non tender EXTREMITIES: no calf tenderness, No edema Laboratory Tests Test 06/25/20 04:58 White Blood Count 8.0 K/UL (4.8-10.8) Red Blood Count 3.39 M/UL (4.20-5.40) L Hemoglobin 9.7 G/DL (12.0-16.0) L Hematocrit 30.1 % (37.0-47.0) L Mean Corpuscular Volume 89 FL (80-99) Mean Corpuscular Hemoglobin 28.8 PG (27.0-31.0) Mean Corpuscular Hemoglobin Concent 32.4 G/DL (32.0-36.0) Red Cell Distribution Width 16.9 % (11.6-14.8) H Platelet Count 198 K/UL (150-450) Mean Platelet Volume 9.7 FL (6.5-10.1) Neutrophils (%) (Auto) 64.5 % (45.0-75.0) Lymphocytes (%) (Auto) 27.9 % (20.0-45.0) Monocytes (%) (Auto) 4.6 % (1.0-10.0) Eosinophils (%) (Auto) 1.9 % (0.0-3.0) Basophils (%) (Auto) 1.1 % (0.0-2.0) Sodium Level 139 MMOL/L (136-145) Potassium Level 4.0 MMOL/L (3.5-5.1) Chloride Level 105 MMOL/L (98-107) Carbon Dioxide Level 29 MMOL/L (21-32) Anion Gap 5 mmol/L (5-15) Blood Urea Nitrogen 5 mg/dL (7-18) L Creatinine 0.8 MG/DL (0.55-1.30) Estimat Glomerular Filtration Rate > 60 mL/min (>60) Glucose Level 92 MG/DL (74-106) Calcium Level 8.6 MG/DL (8.5-10.1) Vancomycin Level Trough 15.9 ug/mL (5.0-12.0) H Microbiology Date/Time Source Procedure Growth Status 06/23/20 06:50 Blood Blood Culture - Preliminary NO GROWTH AFTER 48 HOURS Resulted 06/23/20 06:40 Blood Blood Culture - Preliminary NO GROWTH AFTER 48 HOURS Resulted Assessment/Plan Assessment/Plan PAFlutter Post op cervical spine surgery Mild pulmonary hypertension - ? etiology Mild mitral and tricuspid regurgitation Continue oral diltiazem; switch to long acting formulation. No anticoag therapy at present Consideration for ablation in future, as outpatient. Claudio Barone MD Jun 25, 2020 23:04
--- NOTE | 2020-06-26 10:00 | Discharge Summary ---
Discharge Summary Hospital Course Date of Admission Jun 22, 2020 at 05:26 Date of Discharge Jun 25, 2020 at 13:30 Admitting Diagnosis C45,56,67 herniation, pain, radiculopathy Reason for Hospitalization: elective surgery HPI Aman Gold is a 50 year old female who was admitted on Jun 22, 2020 at 05:26 for Herniated Nucleus Pulposus,Pain Radiculopathy. Patient was admitted for elective surgery Consultations Dr Tapia IM Dr Barone cardio Procedures s/p 06/22/[address] Felton 1. Anterior cervical discectomy and artificial disc replacement of C5-C6 using a Synthes ProDisc C size 5. 2. Anterior cervical discectomy and fusion of C4-C5 using NuVasive Interlock C size 5 PEEK cage and three screws of 13 mm length, and 1 mL of Osteocel allograft bone and local autograft. 3. Anterior cervical discectomy and fusion of C6-C7 using NuVasive Interlock C size 6 PEEK cage and three screws of 13 mm length, and 1 mL of Osteocel allograft bone and local autograft. 4. Use of intraoperative microscope. 5. Motor-evoked potential monitoring. 6. Somatosensory-evoked potential monitoring. 7. Supervision and interpretation of fluoroscopy. Hospital Course status post surgery initially IV fluids s/p perioperative antibiotics neurovascular status closely monitored, remained stable developed paroxysmal atrial flutter was on monitored floor, rhythm was closely monitored started on [facility] portable machine sander followed telemetry later showed sinus rhythm with some PAC. Echocardiogram revealed preserved ejection fraction with mild pulmonary hypertension , mild mitral regurgitation, mild to moderate tricuspid regurgitation per portable machine sander , no anticoagulation therapy at this time was required patient was recommended to consider ablation in future as outpatient. incision clean dry and intact pain management was addressed and pain was controlled ambulated with PT fall precautions maintained; safe for ambulation DVT prophylaxis provided use of incentive spirometry was encouraged while in the bed tolerated diet , IV fluids discontinued GI prophylaxis provided antiemetics were on board as needed voided freely bowel regimen instituted patient was stable for discharge discharge instructions provided follow up with surgeon in the office as advised FINAL DIAGNOSES C45,56,67 herniation s/p Cervical C56 artificial disc replacement, cervical C45 and C67 anterior cervical discectomy and fusion Paroxysmal atrial flutter -resolved Mild pulmonary hypertension - unclear etiology Mild mitral and tricuspid regurgitation Discharge Discharge Vital Signs Last Vital Signs Date Time Temp Pulse Resp B/P (MAP) Pulse Ox O2 Delivery O2 Flow Rate FiO2 06/25/20 12:28 99 124/88 06/25/20 12:00 Room Air 06/25/20 12:00 97.5 18 100 06/22/20 12:35 3.0 Discharge Disposition Patient was discharged to Home (01) Discharge Instructions Discharge Instructions Special Instructions I have been assigned to complete a D/C Summary on this account. I was not involved in the patient management Martha Wright NP Jun 26, 2020 10:00
--- NOTE | 2020-06-26 13:30 | Cardiology Report ---
APPROVED REPORT EXAM: Two-dimensional and M-mode echocardiogram with Doppler and color Doppler. INDICATION Atrial flutter M-Mode DIMENSIONS IVSd1.0 (0.7-1.1cm)Left Atrium (MM)4.0 (1.6-4.0cm) LVDd3.9 (3.5-5.6cm)Aortic Root2.6 (2.0-3.7cm) PWd0.7 (0.7-1.1cm)Aortic Cusp Exc.1.8 (1.5-2.0cm) IVSs1.4 cmEPSS0.4 (>1.0cm) LVDs2.6 (2.5-4.0cm) PWs1.2 cm <Conclusion> Normal left ventricular chamber size, systolic function and wall motion. Left ventricular ejection fraction estimated to be 65-70 %. No evidence of left ventricular hypertrophy. Possible small posterior pericardial effusion. Mild right atrial enlargement. Left atrial size at upper limits of normal. Right ventricular chamber sizes is within normal limits. Focal aortic valve sclerosis with adequate cusp excursion. Thickened mitral valve leaflets with normal excursion. Mitral annulus and aortic root calcification. Normal pulmonic valve structure. Normal tricuspid valve structure. IVC is normal in size with physiological collapse. A color flow and spectral Doppler study was performed and revealed: No aortic regurgitation. Mild mitral regurgitation. Left ventricular diastolic function is normal Mild tricuspid regurgitation. Tricuspid systolic velocities suggests peak right ventricular systolic pressure of 41 mmHg, consistent with mild pulmonary hypertension. Trace pulmonic regurgitation present.
--- NOTE | 2020-06-26 14:46 | Cardiology Report ---
APPROVED REPORT EKG Measurement Heart [id number] [id number] <Conclusion> poor data quality probable atrial flutter with rapid ventricular response Inferior infarct, age undetermined Anterolateral infarct, age undetermined Abnormal ECG
--- NOTE | 2020-07-03 08:09 | Diagnostic Imaging Report ---
INDICATION: Pain, intraoperative TECHNIQUE: Intraoperative imaging Fluoroscopy time: 39 seconds Total dose: 0.24697 mGym2 Total number of images: 21 COMPARISON: None FINDINGS: Intraoperative images demonstrate surgical tools overlying the C4 vertebral body and the C6-7 disc. Subsequent images document surgical tools at the anterior aspect of the C4-5 and C5-6 discs. Subsequent imaging demonstrates placement of a disc prosthesis at C5-6 and anterior fusion hardware at C4-5 and C6-7 IMPRESSION: Intraoperative imaging, as described
== END 2020-06-25 13:30 | disposition home or self-care (01) | DRG 472 ==
LOC: SDSOVERFLO 05:26 → 3E 12:05 → 2E 06-23 07:11 → ICU 06-23 16:01 → 2W 06-24 19:54
PROC: 0RG20A0 Fusion of 2 or more Cervical Vertebral Joints with Interbody Fusion Device, Anterior Approach, Anterior Column, Open Approach (ICD-10-PCS; principal; 2020-06-22 07:00)
PROC: 0RB30ZZ Excision of Cervical Vertebral Disc, Open Approach (ICD-10-PCS; principal; 2020-06-22 07:00)
PROC: 0RR30JZ Replacement of Cervical Vertebral Disc with Synthetic Substitute, Open Approach (ICD-10-PCS; principal; 2020-06-22 07:00)
DX: M50.121 Cervical disc disorder at C4-C5 level with radiculopathy (principal); I48.92 Unspecified atrial flutter; I47.1 Supraventricular tachycardia; M48.02 Spinal stenosis, cervical region; V89.2XXS Person injured in unspecified motor-vehicle accident, traffic, sequela; I27.20 Pulmonary hypertension, unspecified; I34.0 Nonrheumatic mitral (valve) insufficiency; I36.1 Nonrheumatic tricuspid (valve) insufficiency
CPT/HCPCS: 36415; 71275; 72040; 76000; 80048; 80053; 80202; 81025; 82962; 83605; 83735; 83880; 84100; 84443; 84484; 85025; 86850; 86900; 86901; 87040; 87081; 93005; 93306; 93970; 94003; 94150; J2405; U0002